=== PATIENT | female | born 1970 | race Caucasian/White ===

== ENCOUNTER 2017-07-26 15:37 | Emergency (ER) | payer MEDICAID ==
[2017-07-26 16:04] VITALS: BP 147/85; PULSE 93; RESP 20; TEMP 98.4; O2SAT 97
[2017-07-26 16:14] VITALS: O2SAT 99
[2017-07-26 16:15] VITALS: BP 132/77
[2017-07-26] MEDS ORDERED: SODIUM CHLORIDE 0.9% FLUSH 10 ML FLUSH IVF PRN (16:15)
[2017-07-26] MEDS ORDERED: ONDANSETRON HCL 4 MG/2 ML VIAL IV PUSH ONE ×2 (16:30→17:45)
[2017-07-26] MEDS ORDERED: MORPHINE SULFATE 2 MG/ML SYRINGE IV PUSH ONE ×2 (16:30→17:45)
[2017-07-26 16:52] LABS: AUTOMATED NEUTROPHIL # 7.5 TH/MM3 (1.8-7.7); BASOPHIL # 0.1 TH/MM3 (0-0.2); BASOPHIL % 0.5 % (0.0-2.0); EOSINOPHIL # 0.1 TH/MM3 (0-0.4); EOSINOPHIL % 0.6 % (0.0-4.0); HEMATOCRIT 42.3 % (35.0-46.0); HEMOGLOBIN 14.3 GM/DL (11.6-15.3); LYMPH % 26.8 % (9.0-44.0); LYMPHOCYTE # 2.9 TH/MM3 (1.0-4.8); MEAN CELL VOLUME 87.9 FL (80.0-100.0); MEAN CORPUSCULAR HEMOGLOBIN 29.8 PG (27.0-34.0); MEAN CORPUSCULAR HGB CONC 33.9 % (32.0-36.0); MONO % 4.1 % (0.0-8.0); MONOCYTE # 0.4 TH/MM3 (0-0.9); PLATELET COUNT 305 TH/MM3 (150-450); RED BLOOD COUNT 4.81 MIL/MM3 (4.00-5.30); RED CELL DISTRIBUTION WIDTH 13.7 % (11.6-17.2)
--- NOTE | 2017-07-26 16:56 | RADRPT ---
EXAM DATE/TIME: 07/26/2017 16:23 [place] COMPARISON: No previous studies available for comparison. INDICATIONS : Chest pain. MEDICAL HISTORY : None. SURGICAL HISTORY : None. ENCOUNTER: Initial ACUITY: 1 day PAIN SCORE: 5/10 LOCATION: Bilateral chest FINDINGS: A single view of the chest demonstrates minimal consolidation right lower lobe could be a small area of pneumonia. Left lung is clear.. The cardiomediastinal contours are unremarkable. Osseous structu res are intact. CONCLUSION: Infiltrate medial right lung base. Left lung is clear.. Willian Alexander MD on July 26, 2017 at 16:53 Board Certified Radiologist. This report was verified electronically.
[2017-07-26 17:02] LABS: PROTHROMBIN TIME - PATIENT 10.2 SEC (9.8-11.6)
[2017-07-26 17:07] LABS: D-DIMER 0.25 MG/L FEU (0.00-0.50)
[2017-07-26 17:18] LABS: ALBUMIN 3.4 GM/DL (3.4-5.0); ALT (GPT) 19 U/L (10-53); AST (GOT) 15 U/L (15-37); BICARBONATE 27.2 MEQ/L (21.0-32.0); BLOOD UREA NITROGEN 14 MG/DL (7-18); CALCIUM 8.4 MG/DL (8.5-10.1); CHLORIDE 104 MEQ/L (98-107); CREATININE 0.76 MG/DL (0.50-1.00); GLOMERULAR FILTRATION RATE 81 ML/MIN (>89); GLUCOSE,RANDOM 102 MG/DL (74-106); SODIUM (NA) 140 MEQ/L (136-145)
[2017-07-26 17:22] LABS: ALKALINE PHOSPHATASE 88 U/L (45-117); TOTAL BILIRUBIN ADULT 0.5 MG/DL (0.2-1.0); TOTAL PROTEIN 7.1 GM/DL (6.4-8.2); TROPONIN I LESS THAN 0.02 NG/ML (0.02-0.05)
[2017-07-26] MEDS ORDERED: KETOROLAC TROMETHAMINE 30 MG/ML (IVP) VIAL IV PUSH ONE (17:45)
[2017-07-26] MEDS ORDERED: cefTRIAXone INJ 1,000 MG in SODIUM CHLORIDE 0.9% INJ 100 ML IV ONE (17:45)
[2017-07-26] MEDS ORDERED: AZITHROMYCIN INJ 500 MG in SODIUM CHLOR 0.9% 250 ML INJ 250 ML IV ONE (17:45)
[2017-07-26] MEDS ORDERED: AZIT250T3 PO (18:11)
[2017-07-26] MEDS ORDERED: DICL75TA PO (18:11)
[2017-07-26] MEDS ORDERED: TRAM50TA PO (18:17)
--- NOTE | 2017-07-26 18:17 | PD ---
HPI Chief Complaint: Chest Pain Time Seen by Provider: 16:08 Travel History International Travel<30 days: No Contact w/Intl Traveler<30days: No Traveled to known affect area: No History of Present Illness HPI 47-year-old female that presents to the ED for evaluation of right-sided chest pain. Per patient is been ongoing for about 3-4 days. Per patient is worse for the past 24 hours. The patient become more severe. She denies any cough or runny nose. Denies any congestion. She states this is just below the breast and is very tender to touch as well as with deep breaths. She denies any injury. She states that she recently came from [place]. Came by car. Denies take any blood thinner use. Pain per patient is 8 out of 10. No other medical issues. No allergies to medication. Has not seen anybody for this. No urinary or bowel movement issues. No surgeries to her chest. No history of heart disease. Pain does not radiate. Pain is reproducible with touch as well as with deep breaths. No fevers chills or sweats. No sick contacts. PFSH Past Medical History Medical History: Denies Significant Hx ?: Not Past Surgical History Hysterectomy: Yes Social History Alcohol Use: No Tobacco Use: No Substance Use: No Allergies-Medications (Allergen,Severity, Reaction): Coded Allergies: No Known Allergies (Unverified , 07/26/17) Reported Meds & Prescriptions Reported Meds & Active Scripts Active Azithromycin 250 Mg Tab 250 Mg PO DIRECTED Take 2 tabs (500 mg) on day 1 then 1 tab daily x [address] (Diclofenac Sodium) 75 Mg Tabdr 75 Mg PO BID PRN Review of Systems Except as stated in HPI: all other systems reviewed are Neg Physical Exam Narrative GENERAL: Well-nourished, well-developed patient in no apparent distress. SKIN: Warm and dry. Breast exam: Done with female nurse present at all times, patient has no masses to the right breast. She does however have reproducible pain just below the breast between the crease of the breast and the chest on the lower aspect. There reproducible pain here. No obvious deformity or rash. HEAD: Atraumatic. Normocephalic. EYES: Pupils equal and round reactive to light and accommodation. No scleral icterus. No injection or drainage. ENT: No nasal bleeding or discharge. Mucous membranes pink and moist. TMs are clear with no sign of infection or perforation. No mastoid tenderness. Ear canals are intact bilaterally. No lymphadenopathy. Nostril mucosa is red and moist with clear mucus noted. No sinus tenderness to palpation noted. Tonsils are not enlarged or swollen. No ulvua Deviation. Tongue is midline. NECK: Trachea midline. No JVD. No meningeal signs noted CARDIOVASCULAR: Regular rate and rhythm. RESPIRATORY: No accessory muscle use. Clear to auscultation. Breath sounds equal bilaterally. GASTROINTESTINAL: Abdomen soft, non-tender, nondistended. Hepatic and splenic margins not palpable. MUSCULOSKELETAL: Extremities without clubbing, cyanosis, or edema. No obvious deformities. Full range of motion of the upper and lower extremities bilaterally. 2+ pulses bilaterally. NEUROLOGICAL: Awake and alert. No obvious cranial nerve deficits. Motor grossly within normal limits. Five out of 5 muscle strength in the arms and legs. Normal speech. PSYCHIATRIC: Appropriate mood and affect; insight and judgment normal. Data Data Last Documented VS Vital Signs Date Time Temp Pulse Resp B/P (MAP) Pulse Ox O2 Delivery O2 Flow Rate FiO2 07/26/17 17:08 16 07/26/17 16:15 132/77 (95) 07/26/17 16:14 99 Room Air 07/26/17 16:04 98.4 93 Orders Orders Electrocardiogram (07/26/17 16:08) Ckmb (Isoenzyme) Profile (07/26/17 16:08) Complete Blood Count With Diff (07/26/17 16:08) Comprehensive Metabolic Panel (07/26/17 16:08) D-Dimer (07/26/17 16:08) Magnesium (Mg) (07/26/17 16:08) Prothrombin Time / Inr (Pt) (07/26/17 16:08) Act Partial Throm Time (Ptt) (07/26/17 16:08) Troponin I (07/26/17 16:08) Lipase (07/26/17 16:08) Chest, Single Ap (07/26/17 16:08) Ecg Monitoring (07/26/17 16:08) Bilateral Bp Monitoring (07/26/17 16:08) Iv Access Insert/Monitor (07/26/17 16:08) Oximetry (07/26/17 16:08) Sodium Chloride 0.9% Flush (Ns Flush) (07/26/17 16:15) Morphine Inj (Morphine Inj) (07/26/17 16:30) Ondansetron Inj (Zofran Inj) (07/26/17 16:30) Morphine Inj (Morphine Inj) (07/26/17 17:45) Ceftriaxone Inj (Rocephin Inj) (07/26/17 17:45) Ketorolac Inj (Toradol Inj) (07/26/17 17:45) Azithromycin Inj (Zithromax Inj) (07/26/17 17:45) Ondansetron Inj (Zofran Inj) (07/26/17 17:45) Labs Laboratory Tests Test 07/26/17 16:19 White Blood Count 11.0 TH/MM3 Red Blood Count 4.81 MIL/MM3 Hemoglobin 14.3 GM/DL Hematocrit 42.3 % Mean Corpuscular Volume 87.9 FL Mean Corpuscular Hemoglobin 29.8 PG Mean Corpuscular Hemoglobin Concent 33.9 % Red Cell Distribution Width 13.7 % Platelet Count 305 TH/MM3 Mean Platelet Volume 8.0 FL Neutrophils (%) (Auto) 68.0 % Lymphocytes (%) (Auto) 26.8 % Monocytes (%) (Auto) 4.1 % Eosinophils (%) (Auto) 0.6 % Basophils (%) (Auto) 0.5 % Neutrophils # (Auto) 7.5 TH/MM3 Lymphocytes # (Auto) 2.9 TH/MM3 Monocytes # (Auto) 0.4 TH/MM3 Eosinophils # (Auto) 0.1 TH/MM3 Basophils # (Auto) 0.1 TH/MM3 CBC Comment DIFF FINAL Differential Comment Prothrombin Time 10.2 SEC Prothromb Time International Ratio 1.0 RATIO Activated Partial Thromboplast Time 24.6 SEC D-Dimer Quantitative (PE/DVT) 0.25 MG/L FEU Blood Urea Nitrogen 14 MG/DL Creatinine 0.76 MG/DL Random Glucose 102 MG/DL Total Protein 7.1 GM/DL Albumin 3.4 GM/DL Calcium Level 8.4 MG/DL Magnesium Level 2.0 MG/DL Alkaline Phosphatase 88 U/L Aspartate Amino Transf (AST/SGOT) 15 U/L Alanine Aminotransferase (ALT/SGPT) 19 U/L Total Bilirubin 0.5 MG/DL Sodium Level 140 MEQ/L Potassium Level 4.0 MEQ/L Chloride Level 104 MEQ/L Carbon Dioxide Level 27.2 MEQ/L Anion Gap 9 MEQ/L Estimat Glomerular Filtration Rate 81 ML/MIN Total Creatine Kinase 54 U/L Troponin I LESS THAN 0.02 NG/ML Lipase 100 U/L MDM Medical Decision Making Medical Screen Exam Complete: Yes Emergency Medical Condition: Yes Medical Record Reviewed: Yes Interpretation(s) Last Impressions Chest X-Ray 07/26/17 1608 Signed Impressions: Service Date/Time: Wednesday, July 26, 2017 16:23 - CONCLUSION: Infiltrate medial right lung base. Left lung is clear.. Willian Alexander MD CBC & BMP Diagram 07/26/17 16:19 Total Protein 7.1, Albumin 3.4, Calcium Level 8.4 L, Magnesium Level 2.0, Alkaline Phosphatase 88, Aspartate Amino Transf (AST/SGOT) 15, Alanine Aminotransferase (ALT/SGPT) 19, Total Bilirubin 0.5 troponin negative coags WNL EKG shows sinus rhythm with no sign of acute ischemia or arrhythmia noted by me and attending. Differential Diagnosis Chest pain versus atypical chest pain versus pneumonia versus pulmonary embolism versus muscle strain versus costochondritis Narrative Course 47-year-old female that presents to the ED for evaluation of right-sided chest pain. Patient was properly examined and was found to have signs and symptoms of unclear etiology but likely a typical chest pain. D-dimer and labs were ordered. Labs and imaging were essentially unremarkable other than for appears to be pneumonia. D-dimer negative. Otherwise labs unremarkable. EKG unremarkable. Case discussed with my attending Dr. Penn who evaluated the patient herself and agrees with discharge with antibiotics and pain medication. She will be given another dose of pain medication here as well as start IV azithromycin and ceftriaxone. Patient was given a prescription for tramadol, Sodium and azithromycin. Told to follow-up closely with PCP. See ED for any worsening symptoms. Diagnosis Primary Impression: Pneumonia Qualified Codes: J18.1 - Lobar pneumonia, unspecified organism Patient Instructions: General Instructions, Narcotic given in the ED Additional Instructions: Take medications as prescribed. Follow-up with PCP. See ED for any worsening symptoms. Do not drink or drive while taking pain medication. Apply ice or heat as needed for pain Med/Other Pt SpecificInfo: Prescription(s) given Scripts Azithromycin (Azithromycin) 250 Mg Tab 250 MG PO DIRECTED for Infection, #6 TAB 0 Refills Take 2 tabs (500 mg) on day 1 then 1 tab daily x 4 days. Prov: Charlie Piper MD 07/26/[address] (Diclofenac Sodium DR) 75 Mg Tabdr 75 MG PO BID Y for PAIN SCALE 1 TO 10, #20 TAB 0 Refills Prov: Charlie Piper MD 07/26/17 Disposition: 01 DISCHARGE HOME Condition: Stable Ivan Mancilla Jul 26, 2017 18:16
[2017-07-26 18:47] VITALS: BP 133/86; PULSE 81; RESP 21; O2SAT 95
--- NOTE | 2017-07-26 19:30 | PD ---
Physical Exam Date Seen by Provider: Jul 26, 2017 Time Seen by Provider: 17:30 Narrative I, Dr. Piper, have reviewed the advance practice practitioner's documentation and am in agreement, met with the patient face to face, made the diagnosis, and the medical decision making was done by me. *My assessment and Findings: Patient seen and evaluated with PA, please see PA notes for further details, here for right-sided chest pains, dyspnea, initial EKG did not show any signs of acute ST changes or dysrhythmias. On exam, she is mildly tender to palpation in the right chest wall. I do not see any obvious signs of trauma or any rashes. Abdominal exam and the rest of exam was fairly unremarkable. Laboratory Tests Test 07/26/17 16:19 Calcium Level 8.4 MG/DL (8.5-10.1) Estimat Glomerular Filtration Rate 81 ML/MIN (>89) Troponin I LESS THAN 0.02 NG/ML Last 24 hours Impressions Chest X-Ray 07/26/17 1608 Signed Impressions: Service Date/Time: Wednesday, July 26, 2017 16:23 - CONCLUSION: Infiltrate medial right lung base. Left lung is clear.. Willian Alexander MD Chest x-ray shows a right medial infiltrate concerning for underlying pneumonia. D-dimer is negative. At this point, plan would be to give her antibiotics and release with follow-up to primary care doctor. Return for worsening in symptoms as necessary with the plan has been discussed with her and she states understanding. Data Data Last Documented VS Vital Signs Date Time Temp Pulse Resp B/P (MAP) Pulse Ox O2 Delivery O2 Flow Rate FiO2 07/26/17 18:47 81 21 133/86 (102) 95 07/26/17 16:14 Room Air 07/26/17 16:04 98.4 Orders Orders Electrocardiogram (07/26/17 16:08) Ckmb (Isoenzyme) Profile (07/26/17 16:08) Complete Blood Count With Diff (07/26/17 16:08) Comprehensive Metabolic Panel (07/26/17 16:08) D-Dimer (07/26/17 16:08) Magnesium (Mg) (07/26/17 16:08) Prothrombin Time / Inr (Pt) (07/26/17 16:08) Act Partial Throm Time (Ptt) (07/26/17 16:08) Troponin I (07/26/17 16:08) Lipase (07/26/17 16:08) Chest, Single Ap (07/26/17 16:08) Ecg Monitoring (07/26/17 16:08) Bilateral Bp Monitoring (07/26/17 16:08) Iv Access Insert/Monitor (07/26/17 16:08) Oximetry (07/26/17 16:08) Sodium Chloride 0.9% Flush (Ns Flush) (07/26/17 16:15) Morphine Inj (Morphine Inj) (07/26/17 16:30) Ondansetron Inj (Zofran Inj) (07/26/17 16:30) Morphine Inj (Morphine Inj) (07/26/17 17:45) Ceftriaxone Inj (Rocephin Inj) (07/26/17 17:45) Ketorolac Inj (Toradol Inj) (07/26/17 17:45) Azithromycin Inj (Zithromax Inj) (07/26/17 17:45) Ondansetron Inj (Zofran Inj) (07/26/17 17:45) Ed Discharge Order (07/26/17 18:28) Labs Laboratory Tests Test 07/26/17 16:19 White Blood Count 11.0 TH/MM3 Red Blood Count 4.81 MIL/MM3 Hemoglobin 14.3 GM/DL Hematocrit 42.3 % Mean Corpuscular Volume 87.9 FL Mean Corpuscular Hemoglobin 29.8 PG Mean Corpuscular Hemoglobin Concent 33.9 % Red Cell Distribution Width 13.7 % Platelet Count 305 TH/MM3 Mean Platelet Volume 8.0 FL Neutrophils (%) (Auto) 68.0 % Lymphocytes (%) (Auto) 26.8 % Monocytes (%) (Auto) 4.1 % Eosinophils (%) (Auto) 0.6 % Basophils (%) (Auto) 0.5 % Neutrophils # (Auto) 7.5 TH/MM3 Lymphocytes # (Auto) 2.9 TH/MM3 Monocytes # (Auto) 0.4 TH/MM3 Eosinophils # (Auto) 0.1 TH/MM3 Basophils # (Auto) 0.1 TH/MM3 CBC Comment DIFF FINAL Differential Comment Prothrombin Time 10.2 SEC Prothromb Time International Ratio 1.0 RATIO Activated Partial Thromboplast Time 24.6 SEC D-Dimer Quantitative (PE/DVT) 0.25 MG/L FEU Blood Urea Nitrogen 14 MG/DL Creatinine 0.76 MG/DL Random Glucose 102 MG/DL Total Protein 7.1 GM/DL Albumin 3.4 GM/DL Calcium Level 8.4 MG/DL Magnesium Level 2.0 MG/DL Alkaline Phosphatase 88 U/L Aspartate Amino Transf (AST/SGOT) 15 U/L Alanine Aminotransferase (ALT/SGPT) 19 U/L Total Bilirubin 0.5 MG/DL Sodium Level 140 MEQ/L Potassium Level 4.0 MEQ/L Chloride Level 104 MEQ/L Carbon Dioxide Level 27.2 MEQ/L Anion Gap 9 MEQ/L Estimat Glomerular Filtration Rate 81 ML/MIN Total Creatine Kinase 54 U/L Troponin I LESS THAN 0.02 NG/ML Lipase 100 U/L [facility] Medical Record Reviewed: Yes Supervised Visit with ELIUD: Yes Diagnosis Primary Impression: Pneumonia Qualified Codes: J18.1 - Lobar pneumonia, unspecified organism Patient Instructions: General Instructions, Narcotic given in the ED Additional Instruction: Take medications as prescribed. Follow-up with PCP. See ED for any worsening symptoms. Do not drink or drive while taking pain medication. Apply ice or heat as needed for pain Scripts Tramadol (Tramadol) 50 Mg Tab 50 MG PO Q6H Y for PAIN, #12 TAB 0 Refills Prov: Charlie Piper MD 07/26/17 Azithromycin (Azithromycin) 250 Mg Tab 250 MG PO DIRECTED for Infection, #6 TAB 0 Refills Take 2 tabs (500 mg) on day 1 then 1 tab daily x 4 days. Prov: Charlie Piper MD 07/26/[address] (Diclofenac Sodium DR) 75 Mg Tabdr 75 MG PO BID Y for PAIN SCALE 1 TO 10, #20 TAB 0 Refills Prov: Charlie Piper MD 07/26/17 Disposition: 01 DISCHARGE HOME Condition: Stable Charlie Piper MD Jul 26, 2017 19:30
--- NOTE | 2017-07-27 16:16 | EKG ---
Date Performed: 07/26/2017 Time Performed: 16:22:06 PTAGE: 47 years EKG: Sinus rhythm NORMAL ECG NO PREVIOUS TRACING DOCTOR: Kyle Morales Interpretating Date/Time 07/27/2017 16:14:44
== END 2017-07-26 20:27 | disposition home or self-care (01) ==
LOC: NEPE 15:37
DX: J18.1 Lobar pneumonia, unspecified organism (principal); Z79.899 Other long term (current) drug therapy
CPT/HCPCS: 71045; 80053; 82550; 83690; 83735; 84484; 85025; 85379; 85610; 85730; 93005; 96365; 96366; 96368; 96375; 96376; 99285; J0456; J0696; J1885; J2270; J2405; J7050